=== PATIENT | female | born 1955 | race Caucasian/White ===

== ENCOUNTER 2018-10-14 10:04 | Day surgery (SDC) | payer OTHER ==
[~2018-10-14] VITALS: Ht 160 cm; Wt 81.6 kg
[~2018-10-14 10:04] MED LIST: COZAAR25 MG PO; FAMOTIDINE40 MG PO; LIPIT PO; PANTOPRAZOLE SO40 MG PO; [UNRECOGNIZED DRUG - OTHER] PO
== END 2018-10-14 21:30 | disposition home or self-care (01) ==
LOC: CIR.AMB 10:04
DX: N84.0 Polyp of corpus uteri (principal)